=== PATIENT | male | born 1955 | race Caucasian/White ===

== ENCOUNTER 2022-08-02 15:11 | Emergency (ER) | payer MEDICARE, OTHER, SELFPAY ==
[2022-08-02 15:12] VITALS: BP 160/92; PULSE 92; RESP 14; TEMP 36.2; O2SAT 99; BMI 38.7
--- NOTE | 2022-08-02 15:50 | CT_ITS ---
INDICATION: Abdominal pain. No normal bowel movement 3 weeks. On MiraLAX and school softeners. Now with diarrhea and left lower quadrant pain. EXAMINATION: CT ABDOMEN AND PELVIS WITH CONTRAST - CT Abdomen And Pelvis W/ Contrast Injection TECHNIQUE: Helically acquired images were obtained of the abdomen and pelvis following IV contrast. A radiation dose optimization technique was used for this scan. IV Contrast dosage and agent: 100 mL of Isovue-300 Oral contrast: None. COMPARISON: None. FINDINGS: LOWER CHEST: There is a small calcified granuloma in the right posterior costophrenic angle. The lung bases are otherwise clear.. No cardiomegaly or pericardial effusion. Calcified hilar lymph nodes. LIVER: Homogeneous. No focal mass. GALLBLADDER AND BILIARY TREE: No calcified gallstones. No gallbladder distension or wall edema. No intra- or extrahepatic biliary ductal dilation. PANCREAS: No focal cystic or solid mass. SPLEEN: There are multiple calcified granulomata within the otherwise normal spleen. ADRENAL GLANDS: No nodules. KIDNEYS AND URETERS: Normal right kidney. Normal right ureter. There are parapelvic cysts in the left kidney without hydronephrosis. Normal left ureter. PERITONEUM: No ascites or free air. No other fluid collection. BOWEL: Normal stomach. Normal small intestine. Normal colon. Nonvisualization of the appendix. No focal inflammatory change. LYMPH NODES: No enlarged mesenteric or retroperitoneal lymph nodes. VESSELS: Minimal atherosclerotic changes of the aorta without aneurysm or dissection. Normal IVC. URINARY BLADDER: Unremarkable. REPRODUCTIVE ORGANS: Mildly enlarged prostate. ABDOMINAL WALL: Small umbilical hernia of omental fat. Small left inguinal hernia of omental fat. BONES: Minimal degenerative changes lumbar spine without fracture or subluxation. No lytic or blastic lesions. CT/Abdomen/Pelvis W IV Cont ONLY IMPRESSION: 1. No evidence of acute intra-abdominal or pelvic process. 2. Parapelvic renal cysts. 3. Mildly enlarged prostate. 4. Evidence of old granulomatous disease. Electronically Signed: Curt Ferro DO at 17:15 EST Reading Location ID and State: [facility] / [place] Tel [phone], Service support ,
--- NOTE | 2022-08-02 15:53 | EX.ED.DYSGE1 ---
HPI History of Present Illness Chief Complaint: Constipation Informant: patient Narrative Narrative: 67-year old male presenting to the emergency room with a chief complaint of constipation. Patient states that he has not had a normal bowel movement for 3 weeks. He notes the occasional pencil thin stool as well as days of just gas. He notes some mucus but denies any melena or any bleeding in the stool. He does feel bloated but denies any nausea or vomiting. He denies any history of diverticulitis or colitis. He has had a colonoscopy in the past. He denies fever. No urinary symptoms. He has been trying MiraLAX and Colace with no resolution of symptoms. [facility] Medical History Anxiety Restless leg Umbilical hernia Home Medications epinephrine 0.3 mg/0.3 mL injection, auto-injector 0.3 mg (0.3 mL) IM X1 ##1 04/11/14 [Rx Last Taken Unknown] alfuzosin 10 mg tablet,extended release 24 hr 10 mg PO QHS BLADDER 09/19/17 [History Last Taken Unknown] fluoxetine 20 mg capsule 20 mg PO QHS MOOD 09/19/17 [History Last Taken Unknown] ropinirole 0.25 mg tablet 0.25 mg PO QHS RESTLESS LEGS 09/19/17 [History Last Taken Unknown] tolterodine 4 mg capsule,extended release 24 hr 4 mg PO QHS BLADDER 09/19/17 [History Last Taken Unknown] Allergy/AdvReac Type Severity Reaction Status Date / Time venom-honey bee Allergy Anaphylaxis Verified 08/02/22 15:14 [bee venom (honey bee)] itraconazole [From Sporanox] AdvReac Other Verified 08/02/22 15:14 Family History Father Diabetes Cancer prostate Surgical History History of colonoscopy History of lateral meniscus repair of left knee History of umbilical hernia repair Social History Smoking Status: Never smoker alcohol intake: current alcohol intake frequency: holidays/special occasions only substance use type: does not use ROS ROS ED Constitutional Constitutional ED: Denies chills, fever(s) or weight loss Eyes Eyes: Denies change in vision or diplopia ENT ENT ED: Denies ear pain, rhinorrhea or sore throat Cardiovascular Cardiovascular: Denies chest pain, orthopnea, palpitations or racing heartbeat Respiratory/Chest Respiratory/Chest: Denies cough, dyspnea or orthopnea Gastrointestinal Gastrointestinal: Reports abdominal pain, constipation and diarrhea; Denies melena, nausea or vomiting Genitourinary Genitourinary ED: Denies dysuria, hematuria or urinary frequency Musculoskeletal Musculoskeletal: Denies arthralgias or myalgias Integumentary Denies abscess or rash Neurologic Neurologic: Denies headache(s) or weakness Psychiatric Psychiatric: Denies anxiety, depression, suicidal ideation or suicidal thoughts Endocrine Endocrinology: Denies polydipsia, polyphagia or polyuria Allergic/Immunologic Allergic/Immunologic ED: Denies mouth swelling, tongue swelling or urticaria EXAM Physical Exam Const Vital Signs: 08/02/22 15:12 Temperature 97.2 F L Temperature Source Temporal Pulse Rate 92 Respiratory Rate 14 Blood Pressure 160/92 H Blood Pressure Mean 114 Pulse Ox 99 Oxygen Delivery Method Room Air Positive well nourished, well developed and obese General Appearance ED: well developed Nutritional Appearance: obese HEENT Reports normocephalic, head/scalp atraumatic and moist mucous membranes Eyes PERRL and EOMs intact bilaterally Neck no lymphadenopathy, supple and no JVD Resp normal respiratory effort and clear to auscultation bilaterally Cardio regular rate, regular rhythm and no murmurs GI Auscultation: normoactive bowel sounds Palpation: soft and tender LLQ and suprapubic Back/Spine no CVA tenderness and normal ROM Extremity normal to inspection General Extremety ED: Negative for edema General Extremity: Negative for edema Neuro oriented x3 and CN's II-XII intact bilaterally Sensorium / Orientation: alert Motor Exam: strength 5/5 throughout Psych mental status grossly normal Mood & Affect: Negative for depressed or tearful Skin no rashes or lesions noted and no wounds MDM MDM MDM Narrative Medical decision making narrative: Basic blood work shows a white count of 5.9 with a 15. Platelet count is 185. CMP is essentially negative. Urinalysis is negative. CT of the abdomen pelvis is negative. Upon my review of the CT of the abdomen pelvis I do not see any significant amount of stool located in the descending or sigmoid colon. I do not think the patient would benefit from any enema or stool softener. I do recommend continuing to eat and drink normally. I would expect bowel movements to return to normal soon. I do not see any evidence of diverticulitis or obstruction. At this point patient be discharged home with instructions to return if worsening or concerns Lab Data Attestation: I reviewed the patient's lab results. Labs: Laboratory Results - last 24 hr 08/02/22 08/02/22 08/02/22 16:05 16:05 16:50 WBC 5.9 RBC 4.50 L Hgb 15.0 Hct 43.5 MCV 96.7 H MCH 33.3 H MCHC 34.5 RDW Std Deviation 45.3 H RDW Coeff of Amilcar 12.6 Plt Count 185 MPV 10.4 Immature Gran % (Auto) 0.200 Neut % (Auto) 63.6 Lymph % (Auto) 25.6 [place] % (Auto) 8.9 Eos % (Auto) 1.4 Baso % (Auto) 0.3 Absolute Neuts (auto) 3.7 Absolute Lymphs (auto) 1.50 Nucleated RBC % 0 Sodium 141 Potassium 4.0 Chloride 108 H Carbon Dioxide 26.0 Anion Gap 7 BUN 19 H Creatinine 1.01 Estim Creat Clear Calc 69.03 Est GFR (MDRD) Af Amer 94 Est GFR (MDRD) Non-Af 78 BUN/Creatinine Ratio 18.8 Glucose 115 H Calcium 8.7 Total Bilirubin 0.50 AST 14 L ALT 24 Alkaline Phosphatase 106 Total Protein 6.8 Albumin 3.4 Globulin 3.4 Albumin/Globulin Ratio 1.0 Lipase 118 Urine Color Yellow Urine Clarity Sl. Cloudy Urine pH 6.5 Ur Specific [place] 1.015 Urine Protein Negative Urine Glucose (UA) Normal Urine Ketones Negative Urine Occult Blood Negative Urine Nitrite Negative Urine Bilirubin Negative Urine Urobilinogen Normal Ur Leukocyte Esterase 25 H Urine RBC 0 SEEN Urine WBC 0-5 SEEN Ur Squamous Epith Cells 0-5 SEEN Urine Bacteria 0 SEEN Urine Mucus 0 SEEN Radiography Diagnostic Testing: Clinical Impression(s) from Imaging Studies Abdomen/Pelvis CT 08/02/22 15:50 IMPRESSION: 1. No evidence of acute intra-abdominal or pelvic process. 2. Parapelvic renal cysts. 3. Mildly enlarged prostate. 4. Evidence of old granulomatous disease. Electronically Signed: Curt Ferro DO at 17:15 EST Reading Location ID and State: [address] [place] [address] Tel [phone], Service support , Discharge Plan Triage Chief Complaint: Constipation ED Provider: Jared Garcia Dx/Rx/DC Orders Prescriptions: No Action epinephrine 0.3 MG syringe 0.3 mg IM X1 Qty: 1 1RF Label Comments: bee venom allergy tolterodine 4 MG capsule,extended release 24hr 4 mg PO QHS ropinirole 0.25 MG tablet 0.25 mg PO QHS fluoxetine 20 MG capsule 20 mg PO QHS alfuzosin 10 MG tablet extended release 24 hr 10 mg PO QHS Primary Care Provider: Deborah Nguyễn Referrals: Deborah Nguyễn PA [Primary Care Provider] -
[2022-08-02 16:15] LABS: Absolute Neutrophil Count 3.7 X10^3/uL (2.0-7.7); Basophil# 0.02 X10^3/uL; Basophil% 0.3 % (0-1); Eosinophil# 0.08 X10^3/uL; Eosinophils% 1.4 % (0-5); Hematocrit 43.5 % (40-54); Lymphocyte % 25.6 % (19-41); Mean Corp Hgb Conc 34.5 g/dL (32-36); Mean Corpuscular Hgb 33.3 pg (27.0-32.0); Mean Corpuscular Volume 96.7 fL (80-94); Mean Platelet Vol. 10.4 fl (6.2-12.0); Monocyte# 0.52 X10^3/uL; Monocyte% 8.9 % (0-10); NRBC Flagged by Analyzer 0 % (0-5); Neutrophil # 3.74 X10^3/uL (2.7-7.7); Neutrophil % 63.6 % (47-70); Platelet Count 185 K/mm3 (150-450); RBC Distribution Width CV 12.6 % (11.6-14.6); RBC Distribution Width SD 45.3 fl (35.1-43.9); White Blood Count 5.9 K/mm3 (4.4-11.0)
[2022-08-02 16:29] LABS: AST(SGOT) 14 U/L (15-37); Alanine Aminotransfer ALT/SGPT 24 U/L (16-61); Albumin, Serum 3.4 g/dL (3.2-5.0); Alkaline Phosphatase 106 U/L (45-117); Anion Gap 7 (5-15); BUN 19 mg/dL (7-18); BUN/Creat Ratio 18.8 RATIO (10-20); Calcium,Total 8.7 mg/dL (8.5-10.1); Chloride 108 mmol/L (98-107); Creatinine, Serum 1.01 mg/dL (0.70-1.30); EST Glomerular Filtration Rate 78 mL/min (>60); Est Glom Filt Rate - Afr Amer 94 mL/min (>60); Estimated Creatinine Clearance 69.03 ml/min; Globulin 3.4 g/dL (2.2-4.2); Glucose 115 mg/dL (74-106); Lipase 118 U/L (73-393); Protein, Total 6.8 g/dL (6.4-8.2); Sodium Level 141 mmol/L (136-145)
[2022-08-02 16:55] LABS: Bacteria 0 SEEN /hpf (None Seen); Mucous, Urine 0 SEEN /hpf (<or=2+); Red Blood Cells-Urine 0 SEEN /hpf (0-5)
[2022-08-02 16:57] LABS: Color, Urine Yellow (Yellow); Glucose, Dipstick Normal (Normal); Ketone-Dipstick Negative (Negative); Leukocyte Esterase-Dipstick 25 /ul (Negative); Nitrite-Dipstick Negative (Negative); Occult Blood-Urine Negative /ul (Negative); Protein-Dipstick Negative (Negative); Specific Gravity, Urine 1.015 (1.002-1.030); Urine Bilirubin Dipstick Negative (Negative); Urine Clarity Sl. Cloudy (Clear); Urine Urobilinogen Normal (Normal); Urine pH 6.5 (5.0 - 8.0)
[2022-08-02 17:11] LABS: Squamous Epithelial Cells - UA 0-5 SEEN /hpf (0-5); White Blood Cells 0-5 SEEN /hpf (0-5)
[2022-08-02 18:16] VITALS: PULSE 88; RESP 17; O2SAT 98
== END 2022-08-02 18:21 | disposition home or self-care (01) ==
PROVIDERS: Emergency Provider Emergency Medicine; PCP Physician Assistant; Visit Provider Emergency Medicine
DX: K59.00 Constipation, unspecified (principal); E66.9 Obesity, unspecified; N40.0 Benign prostatic hyperplasia without lower urinary tract symptoms
CPT/HCPCS: 74177; 80053; 81001; 83690; 85025; 99283; Q9967; A4216

== ENCOUNTER → 2023-12-10 | Outpatient (CLI) | payer MEDICARE, OTHER, SELFPAY ==
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
== END | disposition home or self-care (01) ==
LOC: RAD 12:43
PROVIDERS: PCP Physician Assistant; Referring Provider Internal Medicine Pulmonary Disease; Visit Provider Internal Medicine Pulmonary Disease
DX: R13.10 Dysphagia, unspecified (principal); R05.9 Cough, unspecified
CPT/HCPCS: 74230; 92611

== ENCOUNTER → 2024-08-20 | Outpatient (CLI) | payer MEDICARE, OTHER, SELFPAY ==
--- NOTE | 2024-08-20 13:30 | RAD_ITS ---
STUDY: X-RAY - LUMBAR SPINE REASON FOR EXAM: Male, 69 years old. SPONDYLOSIS TECHNIQUE: 2 view(s) of the lumbar spine were obtained. COMPARISON: None FINDINGS: Normal lumbar lordosis. There is no substantial scoliosis. There is a normal alignment of the vertebrae. Mild asymmetric disc space narrowing and endplate spurring is present throughout the lumbar spine. No visualized fracture or compression deformity. Mild retrolisthesis of L2 on L3. The soft tissue structures are unremarkable. RAD/Lumbar Spine 2 or 3 Views IMPRESSION: Degenerative changes of the spine, as detailed above. Electronically Signed: Mihai Alemida MD at 9:06 EST ,
== END | disposition home or self-care (01) ==
LOC: RAD 13:17
PROVIDERS: Referring Provider Anesthesiology Pain Medicine; Visit Provider Anesthesiology Pain Medicine
DX: M47.816 Spondylosis without myelopathy or radiculopathy, lumbar region (principal); M46.1 Sacroiliitis, not elsewhere classified
CPT/HCPCS: 72100